=== PATIENT | male | born 1985 | race Caucasian/White ===

== ENCOUNTER 2022-05-27 09:10 | Outpatient (CLI) | payer OTHER, SELFPAY ==
[2022-05-27 14:10] LABS: Albumin* 4.4 g/dL (3.3-5.0); Chloride* 103 mmol/L (96-114)
[2022-05-27 14:11] LABS: Potassium* 4.6 mmol/L (3.6-5.1); Sodium* 137 mmol/L (135-149)
[2022-05-27 14:13] LABS: Alkaline Phosphatase* 57 U/L (40-150); Aspartate Amino Transferase* 31 U/L (12-35); Bilirubin Total* 0.5 mg/dL (0.1-1.5); Blood Urea Nitrogen* 13 mg/dL (5-24); Carbon Dioxide* 28 mmol/L (20-32); Creatinine* 0.9 mg/dL (0.5-1.5); Estimated Glomerular Filt Rate 114 ml/min; Total Protein* 6.5 g/dL (6.0-8.3)
[2022-05-27 14:14] LABS: Alanine Aminotransferase* 43 U/L (4-50); Calcium* 9.6 mg/dL (8.4-10.6); Glucose* 123 mg/dL (60-115)
== END 2022-05-27 09:11 | disposition home or self-care (01) ==
LOC: LKVREF 09:11
PROVIDERS: PCP Physician Assistant Medical; Visit Provider Physician Assistant Medical
DX: R79.89 Other specified abnormal findings of blood chemistry (principal); E87.5 Hyperkalemia
CPT/HCPCS: 80053

== ENCOUNTER 2023-02-26 14:58 | Outpatient (CLI) | payer OTHER, SELFPAY | END 2023-02-26 14:59 | disposition home or self-care (01) | PROVIDERS: PCP Physician Assistant Medical; Visit Provider Physician Assistant Medical | DX: R07.89 Other chest pain (principal); R79.89 Other specified abnormal findings of blood chemistry; I10 Essential (primary) hypertension; E87.5 Hyperkalemia | CPT/HCPCS: 80053; 84443 ==

== ENCOUNTER 2023-02-27 09:25 | Outpatient (CLI) | payer OTHER, SELFPAY ==
[2023-02-27 10:31] LABS: Hemoglobin A1C* 7.6 % (0-5.6)
== END 2023-02-27 09:26 | disposition home or self-care (01) ==
LOC: LKVREF 09:26
PROVIDERS: PCP Physician Assistant Medical; Visit Provider Physician Assistant Medical
DX: R73.09 Other abnormal glucose (principal)
CPT/HCPCS: 83036

== ENCOUNTER 2023-06-25 07:59 | Outpatient (CLI) | payer OTHER, SELFPAY | END 2023-06-25 08:00 | disposition home or self-care (01) | LOC: NFLDREF 06-26 08:25 | PROVIDERS: PCP Physician Assistant Medical; Referring Provider Physician Assistant Medical; Visit Provider Physician Assistant Medical | DX: E11.9 Type 2 diabetes mellitus without complications (principal); E87.5 Hyperkalemia; R79.89 Other specified abnormal findings of blood chemistry; Z11.59 Encounter for screening for other viral diseases | CPT/HCPCS: 80053; 80061; 86703; 86803 ==

== ENCOUNTER 2023-10-23 13:12 | Outpatient (CLI) | payer OTHER, SELFPAY | END 2023-10-23 13:13 | disposition home or self-care (01) | LOC: LKVREF 13:13 | PROVIDERS: PCP Physician Assistant Medical; Visit Provider Physician Assistant Medical | DX: E11.9 Type 2 diabetes mellitus without complications (principal); I10 Essential (primary) hypertension | CPT/HCPCS: 82043; 82570 ==